=== PATIENT | male | born 1975 | race Caucasian/White ===

== ENCOUNTER 2019-12-24 00:23 | Emergency (ER) | payer OTHER, SELFPAY ==
[2019-12-24 00:21] VITALS: BP 124/84; PULSE 98; RESP 20; TEMP 36.2; O2SAT 96
[2019-12-24 00:24] VITALS: RESP 20
--- NOTE | 2019-12-24 01:08 | ED.OVERDOSE ---
HPI - Overdose General Chief Complaint: Overdose Stated Complaint: od Time Seen by Provider: 12/24/19 00:25 Source: patient Mode of arrival: EMS Limitations: no limitations History of Present Illness HPI Narrative: This patient is a 44 male who presents for evaluation after fentanyl overdose. PAtient states he ran out of his Suboxone 1 week ago. He was having pain in his feet so he decided to snort fentanyl tonight while on his lunch break. He was found unresponsive and he was given narcan 4 mg by PD and 2 mg narcan by EMS. He was responsive after EMS dose. He initially had nausea and vomiting after wards but he denies currently. He has no complaints. He states this was his first time using in 2 months. complaint: accidental overdose Related Data Allergies Allergy/AdvReac Type Severity Reaction Status Date / Time No Known Allergies Allergy Verified 12/24/19 04:10 Review of Systems Review of Systems: All systems reviewed & are unremarkable except as noted in HPI and below Cardiovascular: Cardiovascular: Denies chest pain Respiratory: Respiratory: Denies cough and Denies dyspnea Gastrointestinal: Gastrointestinal: Reports nausea and Reports vomiting Musculoskeletal: Musculoskeletal: Reports myalgias PMFSH Past Medical History Medical History (Updated 12/24/19 @ 04:10 by Kelli Reyes MD) Hypothyroid Surgical History Surgical History (Updated 12/24/19 @ 01:09 by Kelli Reyes MD) H/O hernia repair Social History Social History (Updated 12/24/19 @ 01:09 by Kelli Reyes MD) Smoking status: Current every day smoker Substance use type: opiates Exam Const: General: no acute distress and alert Orientation/consciousness: patient oriented x3 HENMT: Head: normocephalic and atraumatic Face and sinus: normal facial exam and face symmetric Mouth: Yes Normal oral and palatal mucosa present Throat: posterior oropharynx normal and uvula midline Eyes: Pupils: Equal, round and reactive pupils present EOM: EOMs intact bilaterally Chest: Chest palpation & inspection: normal inspection of the chest Resp: Effort & Inspection: normal respiratory effort and no retractions Auscultation: clear to auscultation bilaterally Cardio: Rate: regular rate Rhythm: regular rhythm Heart sounds: no murmurs GI: GI Palp: Yes Soft to palpation, No Tenderness to palpation present (GI), No Guarding due to palpation present (GI) and No Rigid due to palpation Skin: General skin exam: normal color Rashes: no rashes Neuro: General: patient oriented x3 and moves all extremities Course Reevaluation(s) Reevaluation #1: Patient has been awake and able to answer questions. He is out of his suboxone and his synthroid 100 mcg. Date: 12/24/19 Time: 04:08 Vital Signs Vital signs: Vital Signs Temperature 97.2 F L 12/24/19 00:21 Pulse Rate 98 12/24/19 00:21 Respiratory Rate 20 12/24/19 00:21 Blood Pressure 124/84 12/24/19 00:21 Pulse Oximetry 96 12/24/19 00:21 Temperature 97.8 F 12/24/19 04:55 Pulse Rate 79 12/24/19 04:55 Respiratory Rate 20 12/24/19 04:55 Blood Pressure 130/92 H 12/24/19 04:55 Pulse Oximetry 100 12/24/19 04:55 Discharge Plan Discharge Clinical Impression: Has run out of medications Accidental fentanyl overdose Qualifiers: Encounter type: initial encounter Qualified Code(s): T40.4X1A - Poisoning by other synthetic narcotics, accidental (unintentional), initial encounter Instructions: Adult Overdose (ED) Additional Instructions: Please call your doctor tomorrow to discussed new prescription of your suboxone. Prescriptions: New levothyroxine 100 mcg capsule 100 mcg PO DAILY Qty: 14 RF: 0 Follow-up/Referrals: UNKNOWN,DOCTOR [Primary Care Provider] - Discharge Date/Time: 12/24/19 04:56
[2019-12-24 01:54] VITALS: BP 116/81; PULSE 83; RESP 18; TEMP 36.9; O2SAT 98
[2019-12-24 03:16] VITALS: BP 115/91; PULSE 69; RESP 18; O2SAT 100
[2019-12-24 04:55] VITALS: BP 130/92; PULSE 79; RESP 20; TEMP 36.6; O2SAT 100
== END 2019-12-24 04:56 | disposition home or self-care (01) ==
PROVIDERS: Emergency Provider General Practice
DX: T40.4X1A Poisoning by other synthetic narcotics, accidental (unintentional), initial encounter (principal); E03.9 Hypothyroidism, unspecified; F17.200 Nicotine dependence, unspecified, uncomplicated
CPT/HCPCS: 99283